=== PATIENT | male | born 1980 | race Caucasian/White ===

== ENCOUNTER 2016-12-07 09:20 | Day surgery (SDC) | payer BC ==
[2016-12-07 09:41] LABS: HEMATOCRIT 45.3 % (42.0-54.0); HEMOGLOBIN 14.9 g/dL (13.5-17.5); MCH 30.3 pg (26.0-34.0); MCHC 32.9 g/dL (31.0-37.0); MCV 92.1 fL (80.0-100.0); MEAN PLATELET VOLUME 9.8 fL (7.4-10.4); RBC 4.92 10x6/uL (4.20-6.10)
[2016-12-07] MEDS ORDERED: HYDROCODONE-APA1 TAB PO (10:49)
[2016-12-07] MEDS ORDERED: METOPROLOL TART50 MG PO (10:49)
[2016-12-07 11:01] VITALS: BP 130/61; BMI 52.3
--- NOTE | 2016-12-07 13:08 | NUR ---
PATIENT POSITIONED LEFT LATERAL FOR COLONOSCOPY THEN PLACE IN LITHOTOMY FOR ANAL EXAM SPHINCTEROTOMY, ALL AREAS PADDED AND SECURED NO IMPINGENMENTS, EVA.
--- NOTE | 2016-12-07 18:40 | NUR ---
PATIENT URINATES LARGE AMOUNT IN TOILET, AMBULATING AROUND ROOM, RIGHT FOREARM PIV DC'D WITH TIP INTACT, PATIENT TO DRESS IN PERSONAL CLOTHING
--- NOTE | 2016-12-07 18:50 | NUR ---
DISCHARGE INSTRUCTIONS REVIEWED WITH PATIENT AND SPOUSE. PATIENT DISCHARGED HOME VIA WHEELCHAIR TO PRIVATE VEHICLE WITH SPOUSE
--- NOTE | 2016-12-11 10:04 | HP ---
PATIENT: NIRAV NORMAN MEDICAL RECORD: [id number] ACCOUNT: [id number] LOCATION:[facility] : 76 ADMISSION DATE: 12/07/16 HISTORY AND PHYSICAL EXAMINATION CHIEF COMPLAINT: Pain. HISTORY OF PRESENT ILLNESS: The patient has knife-like anal pain. He has bleeding with bowel movements as well. He has some external hemorrhoidal symptoms. He has perianal wetness. Some minor anal leakage as well. I believe that he has an anal fissure. On examination, he has tenderness in the posterior midline and perhaps a sentinel tag. I am going to plan for a colonoscopy as well as an anal evaluation under anesthesia, possible lateral internal sphincterotomy, possible fissurectomy, possible procedure for prolapse and hemorrhoids, possible ligation of internal hemorrhoids. The risks, possible complications and alternatives to procedure were explained to the patient. He elects to proceed. PAST MEDICAL AND SURGICAL HISTORY: Hypertension, obstructive sleep apnea - on CPAP, 3 left knee surgeries including an ACL repair, and history of appendectomy. SOCIAL HISTORY: Nonsmoker. HOME MEDICATIONS: Lopressor as well as hydrocodone. ALLERGIES: DILAUDID WELL MORPHINE, BOTH OF WHICH MAKES HIM ANXIOUS. REVIEW OF SYSTEMS: Negative for heart disease. Negative for fainting or seizures. Negative for rheumatic fever. Negative for diabetes or thyroid problems. Negative for respiratory disease or dyspnea. PHYSICAL EXAMINATION: GENERAL: The patient does not appear acutely ill. He does not appear chronically ill. VITAL SIGNS: Reviewed. HEAD: External ears appear normal. EYES: Extraocular movements are intact. NECK: Trachea is midline. CHEST: No intercostal retractions. PULMONARY: Nonlabored, no stridor. ABDOMEN: No peritonitis with movement. IMPRESSION: 1. Hematochezia. 2. Probable anal fissure. PLAN: As described above. TRANSINT:[id number] Voice Confirmation ID: [id number] DOCUMENT ID: [id number] HISTORY AND PHYSICAL [id number] NIRAV NORMAN ROBERT MD at 1004 CC: MACEY VERDUGO MD [id number] DICTATION DATE: 12/07/16 1527 COMMUNITY THEATER ACTOR: 12/07/16 1628 [facility] 12/07/16 [id number] [place] [address]
--- NOTE | 2016-12-11 10:04 | OP ---
PATIENT NAME: NIRAV NORMAN MEDICAL RECORD: [id number] :76 LOCATION:D.OPS ADMISSION DATE: SURGEON: GERALD COFFEY MD DATE OF OPERATION: 12/07/2016 PREOPERATIVE DIAGNOSES: 1. Hematochezia. 2. Probable anal fissure. POSTOPERATIVE DIAGNOSES: 1. Hematochezia. 2. Anal fissure. 3. Enlarged internal hemorrhoidal bundles times 2. 4. Three colorectal polyps, sessile. PROCEDURES: 1. Total colonoscopy to cecum. 2. Hot biopsy forceps polypectomies times 3. 3. Anal evaluation under anesthesia. 4. Lateral internal sphincterotomy. 5. Fissurectomy. 6. Ligation of internal hemorrhoidal bundles times 2. SURGEON: Gerald Coffey MD BOOK ILLUSTRATOR: None. BLOOD LOSS: Less than 25 cc. ANESTHESIA: General. COMPLICATIONS: None. The risks, possible complications and alternatives to procedure were explained to the patient. He elects to proceed. OPERATIVE COURSE: The patient was conveyed to the operating room electively on 12/07/2016. General anesthesia was induced by the anesthesia staff. The patient was placed in the Chaudhari position. A digital rectal examination was performed. Prostate was small and without nodules. A colonoscope was inserted through the anus. It was easily advanced to the cecum. The prep was adequate. I slowly withdrew the endoscope. I irrigated and aspirated extensively. I utilized direct imaging as well as narrow band imaging. Three colorectal polyps were noted. These ranged in size from 6 mm to 1.0 cm. These were removed in their entireties utilizing the hot biopsy forceps polypectomy technique. The endoscope was then withdrawn under direct vision. The patient was then placed in the lithotomy position. The buttocks were taped laterally. The anus and perianal areas were sterilely prepped and draped. I then dilated the anus laterally to 2 fingers. U-shaped anal retractors were placed. A posterior lying anal fissure was noted. I utilized the Harmonic scalpel to excise the fissure. No time was there any damage to the underlying sphincteric muscles. The fissurectomy site was closed with multiple interrupted horizontal mattress 3-0 Vicryl sutures. I then went about performing the OPERATIVE REPORT [id number] NIRAV NORMAN lateral internal sphincterotomy. At the 3 o'clock position, mucosal incision was accomplished. I dissected down to the internal anal sphincter as well as the external anal sphincter. I then took a knife and then a pair of scissors and then I was able to cut the internal sphincteric muscles. There was no damage to the external muscles. The mucosa was then closed with a running locking 3-0 Vicryl suture. This extended out on to the anoderm where interrupted intracuticular 4-0 Vicryls were placed. There were 2 enlarged hemorrhoidal bundles and these were at 11 o'clock and 2 o'clock. These were ligated with [id number] 3-0 Vicryl suture. Gelfoam was applied within the anus and rectum. A combination of sterile preparation and Marcaine were used to infiltrate the perirectal tissues and perianal tissues. A topical anesthetic was applied to the external hemorrhoids. The patient was then extubated and conveyed to the post-anesthesia care unit where he was in stable condition. He will be dismissed home on Valium as well as hydrocodone and Colace. I will see him at work in 3 to 4 weeks. There is no need for him to make an appointment to see me in the office. TRANSINT:[id number] Voice Confirmation ID: [id number] DOCUMENT ID: [id number] GERALD COFFEY MD at 1004 CC: AMCEY VERDUGO MD [id number] DICTATION DATE: 12/07/16 154 ATM TECHNICIAN: 12/07/16 1615 [facility] 12/07/16 [facility] [address] [place] [address]
== END 2016-12-07 18:50 | disposition home or self-care (01) ==
LOC: D.OPS 09:20
PROVIDERS: Anesthesiology
DX: D12.2 Benign neoplasm of ascending colon (principal); D12.5 Benign neoplasm of sigmoid colon; K63.5 Polyp of colon; K60.2 Anal fissure, unspecified; K64.8 Other hemorrhoids; K62.1 Rectal polyp; I10 Essential (primary) hypertension; G47.33 Obstructive sleep apnea (adult) (pediatric); Z79.891 Long term (current) use of opiate analgesic; Z79.899 Other long term (current) drug therapy

== ENCOUNTER 2019-01-11 12:47 | Observation (INO) | payer BC ==
[~2019-01-11] VITALS: Ht 180.3 cm; Wt 187.3 kg
[~2019-01-11 12:47] MED LIST: HYDROCODONE-APA1 TAB PO; METOPROLOL TART50 MG PO
[2019-01-11 13:22] LABS: HEMATOCRIT 42.8 % (42.0-54.0); HEMOGLOBIN 14.3 g/dL (13.5-17.5); LYMPHOCYTES 21.6 % (15-50); MCH 30.5 pg (26.0-34.0); MCHC 33.4 g/dL (31.0-37.0); MCV 91.3 fL (80.0-100.0); MEAN PLATELET VOLUME 9.7 fL (7.4-10.4); NEUTROPHILS 68.6 % (40-80); PLATELET COUNT 209 10x3/uL (130-400); RBC 4.69 10x6/uL (4.20-6.10); RDW 13.3 % (11.5-14.5); WBC 8.2 10x3/uL (4.8-10.8)
[2019-01-11 13:25] LABS: CALC OSMOLALITY 280 mosm/kg (275-300); CALCIUM 9.1 mg/dL (8.5-10.1); CARBON DIOXIDE 23.2 mmol/L (21.0-32.0); CHLORIDE - SERUM 104 mmol/L (98-107); GLUCOSE 114 mg/dL (74-106); POTASSIUM - SERUM 3.8 mmol/L (3.5-5.1); SODIUM 139 mmol/L (136-145); UREA NITROGEN 19 mg/dL (7-18); eGFR NON AFRICAN AMERICAN 88 mL/min (90-120)
[2019-01-11 13:40] LABS: ALBUMIN 3.6 g/dL (3.4-5.0); ALKALINE PHOSPHATASE 55 U/L (46-116); ALT (SGPT) 52 U/L (10-68); BILIRUBIN - TOTAL 0.47 mg/dL (0.2-1.3); CKMB 3.6 U/L (0.0-3.6); CREATINE KINASE 248 UL (21-232); PRO BNP 15 pg/mL (0-125); PROTEIN - SERUM 7.4 g/dL (6.4-8.2); TROPONIN-I < 0.017 ng/mL (0.000-0.060)
[2019-01-11 13:59] VITALS: BP 147/82
--- NOTE | 2019-01-11 14:01 | NUR ---
PAIN 3/10 IN HEAD. PAIN 0/10 IN CHEST AT THIS TIME
[2019-01-11 14:37] VITALS: BP 161/84
[2019-01-11 15:24] VITALS: BP 151/80
--- NOTE | 2019-01-11 15:36 | NUR ---
REPORT TO NATALIA GORDILLO
[2019-01-11 15:40] VITALS: BP 161/100
--- NOTE | 2019-01-11 15:40 | NUR ---
TRANSPORTED TO ROOM #2119, CONDITION STABLE
[2019-01-11] MEDS ORDERED: OMEGA-3100 MG PO (15:58)
[2019-01-11] MEDS ORDERED: ACETAMINOPHEN325 MG PO (15:58)
[2019-01-11] MEDS ORDERED: MULTI-DAY VITAM1 TAB PO (15:58)
--- NOTE | 2019-01-11 17:12 | NUR ---
BAYRON FROM [facility] STATES TO HAVE PT NPO AFTER MIDNIGHT AND NO CAFFEINE.
[2019-01-11 17:20] VITALS: BP 147/73; BMI 57.6
[2019-01-11 19:00] VITALS: BP 141/88
[2019-01-11 19:10] VITALS: Ht 180.3 cm; Wt 187.3 kg
[2019-01-12] VITALS: BP 125/71
[2019-01-12 04:00] VITALS: BP 132/77
[2019-01-12 06:12] LABS: ALBUMIN 3.3 g/dL (3.4-5.0); ALKALINE PHOSPHATASE 54 U/L (46-116); ALT (SGPT) 50 U/L (10-68); BILIRUBIN - TOTAL 1.06 mg/dL (0.2-1.3); CALC OSMOLALITY 279 mosm/kg (275-300); CALCIUM 8.5 mg/dL (8.5-10.1); CARBON DIOXIDE 24.1 mmol/L (21.0-32.0); CHLORIDE - SERUM 105 mmol/L (98-107); CREATININE - SERUM 0.7 mg/dL (0.6-1.3); GLUCOSE 119 mg/dL (74-106); POTASSIUM - SERUM 3.7 mmol/L (3.5-5.1); PROTEIN - SERUM 7.1 g/dL (6.4-8.2); SODIUM 140 mmol/L (136-145); UREA NITROGEN 13 mg/dL (7-18); eGFR NON AFRICAN AMERICAN > 90 mL/min (90-120)
[2019-01-12 06:25] LABS: HEMATOCRIT 42.2 % (42.0-54.0); HEMOGLOBIN 14.6 g/dL (13.5-17.5); LYMPHOCYTES 19.7 % (15-50); MCH 31.6 pg (26.0-34.0); MCHC 34.6 g/dL (31.0-37.0); MCV 91.3 fL (80.0-100.0); MEAN PLATELET VOLUME 10.9 fL (7.4-10.4); NEUTROPHILS 70.6 % (40-80); RBC 4.62 10x6/uL (4.20-6.10); RDW 13.2 % (11.5-14.5); WBC 7.7 10x3/uL (4.8-10.8)
[2019-01-12 06:29] LABS: PLATELET COUNT 262 10x3/uL (130-400)
--- NOTE | 2019-01-12 07:10 | NUR ---
REPORT RECEVIED FROM CONDENSER TESTER AND PATIENT CARE ASSUMED. PATIENT LAYING IN BED ON BACK AWAKE, ALERT AND ORIENTED X 4. PATIENT IS STABLE AND VSS. PATIENT IS NPO AWAITNING STRESS TEST. PATIENT DENIES ANY NEEDS OR PAIN. WILL CONTINUE WITH PLAN OF CARE. SR UP X 2 BED IN LOW POSITION AND CALL LIGHT IN REACH.
--- NOTE | 2019-01-12 13:03 | NUR ---
I have reviewed this patient and I concur with the Shift Assessment completed by the Licensed Practical Nurse today this shift.
--- NOTE | 2019-01-12 13:30 | NUR ---
PATIENT IS STABLE. PATIENT DENIES ANY NEEDS OR PAIN. AT BS. WILL CONTINUE WITH PLAN OF CARE. SR UP X 2 BED IN LOW POSITION AND CALL LIGHT IN REACH.
--- NOTE | 2019-01-12 19:44 | NUR ---
RECEIVED BEDSIDE REPORT. PATIENT RESTING COMFORTABLY IN BED. RESPIRATIONS ARE EVEN AND UNLABORED. NO S/S OF DISTRESS. NO C/O PAIN. CALL LIGHT WITHIN REACH. WILL CPOC.
[2019-01-12 20:00] VITALS: BP 125/78
[2019-01-13] VITALS: BP 126/72
[2019-01-13 04:00] VITALS: BP 110/82
[2019-01-13 08:05] VITALS: BP 130/80
[2019-01-13] MEDS ORDERED: LISINOPRIL10 MG PO (12:34)
[2019-01-13 13:15] VITALS: BP 118/58
--- NOTE | 2019-01-13 14:30 | NUR ---
REVIEWED DISCHARGE INSTRUCTIONS WITH PT STATES UNDERSTANDING COPY GIVEN DCD SALINE LOCK TO RT HAND WITH IV CATHETER INTACT SITE FREE OF REDNESS OR EDEMA PT DISCHARGED HOME IN STABLE CONDITION WITH ALL PERSONAL BELONGINGS
== END 2019-01-13 14:42 | disposition home or self-care (01) ==
LOC: D.ER 12:47 → D.M2 13:55 → OBSVTIME 14:23 → D.M2 01-13 14:42
PROVIDERS: Family Medicine; ADMIT Family Medicine; ATTEND Family Medicine
DX: R07.9 Chest pain, unspecified (principal); I16.1 Hypertensive emergency; E66.01 Morbid (severe) obesity due to excess calories; Z68.43 Body mass index [BMI] 50.0-59.9, adult

== ENCOUNTER 2019-11-28 04:24 | Emergency (ER) | payer SELFPAY ==
[~2019-11-28 04:24] MED LIST changes: +ACETAMINOPHEN325 MG PO; +LISINOPRIL10 MG PO; +MULTI-DAY VITAM1 TAB PO; +OMEGA-3100 MG PO
[2019-11-28 04:31] VITALS: Ht 180.3 cm
[2019-11-28] MEDS ORDERED: STERAPRED DS 1010 MG PO (06:16)
[2019-11-28] MEDS ORDERED: HYDROCODON-ACE1 EA10 PO (06:16)
[2019-11-28 06:27] VITALS: BP 159/96
== END 2019-11-28 06:27 | disposition home or self-care (01) ==
LOC: D.ER 04:24
DX: S39.012A Strain of muscle, fascia and tendon of lower back, initial encounter (principal); M47.816 Spondylosis without myelopathy or radiculopathy, lumbar region; R73.03 Prediabetes; I10 Essential (primary) hypertension

== ENCOUNTER 2020-05-06 09:17 | Emergency (ER) | payer BC ==
[~2020-05-06] VITALS: Ht 182.9 cm; Wt 175.5 kg
[~2020-05-06 09:17] MED LIST changes: +HYDROCODON-ACE1 EA10 PO; +STERAPRED DS 1010 MG PO
[2020-05-06 09:22] VITALS: Ht 182.9 cm; Wt 175.5 kg
[2020-05-06] MEDS ORDERED: VOLTAREN75 MG PO (11:28)
[2020-05-06 12:05] VITALS: BP 163/96
== END 2020-05-06 12:05 | disposition home or self-care (01) ==
LOC: D.ER 09:17
DX: M25.512 Pain in left shoulder (principal); R51.9 Headache, unspecified; R20.0 Anesthesia of skin; I10 Essential (primary) hypertension